=== PATIENT | female | born 1985 | race Caucasian/White ===

== ENCOUNTER 2018-10-09 22:37 | Emergency (ER) | payer MEDICAID ==
[~2018-10-09] VITALS: Ht 160 cm; Wt 69.0 kg
[2018-10-09 22:47] VITALS: BP 96/64
--- NOTE | 2018-10-09 22:50 | NUR ---
PT RETURNED TO LOBBY IN STABLE CONDITION
--- NOTE | 2018-10-09 22:55 | NUR ---
PT PRESENTS TO ED WITH N/V/D, GENERALIZED BODY ACHES, SOAR THROAT, PRODUCTIVE COUGH WITH GREEN SPUTUM, 8/10 PAIN, X2 DAYS. PT STATES FEVER AT HOME BUT TAKING MOTRIN WITH RELIEF. AFEBRILE AT THIS TIME. A&OX4. BILAT UPPER LOBES COARSE WITH PRODUCTIVE COUGH. POSITIONED IN BED FOR COMFORT WITH HOB ELEVATED. ER MD AWARE. CONTINUE TO MONITOR.
--- NOTE | 2018-10-09 22:55 | NUR ---
PT AMBULATED TO BED 6
--- NOTE | 2018-10-10 00:28 | NUR ---
PT EVAL BY RONALD RIVERA
[2018-10-10] MEDS ORDERED: KETOROLAC 30 MG/ML VIAL IVP ONE (00:40)
[2018-10-10] MEDS ORDERED: NACL 0.9% 1,000 ML IV ONE (00:40)
[2018-10-10] MEDS ORDERED: MORPHINE SULFATE 4 MG/ML SYR IVP ONE (01:10)
[2018-10-10 01:45] VITALS: BP 100/60
--- NOTE | 2018-10-10 01:45 | NUR ---
Patient discharged with v/s stable. Written and verbal after care instructions given and explained. Patient alert, oriented and verbalized understanding of instructions. Ambulatory with steady gait. All questions addressed prior to discharge. ID band removed. Patient advised to follow up with PMD. Rx of Prednisone, motrin, Tamiflu given. Patient educated on indication of medication including possible reaction and side effects. Opportunity to ask questions provided and answered.
== END 2018-10-10 01:45 | disposition home or self-care (01) ==
LOC: MED 22:37
DX: J11.1 Influenza due to unidentified influenza virus with other respiratory manifestations (principal); R07.9 Chest pain, unspecified; J45.909 Unspecified asthma, uncomplicated
CPT/HCPCS: 81002; 81025; 96374; 96375; 99283; J1885; J2270

== ENCOUNTER 2024-03-27 10:32 | Emergency (ER) | payer MEDICAID ==
[~2024-03-27] VITALS: Ht 157.5 cm; Wt 68.5 kg
[2024-03-27 10:57] VITALS: BP 137/69; PULSE 75; RESP 20; TEMP 98.3; O2SAT 98
[2024-03-27 12:06] LABS: BASOPHILS # (AUTO) 0.1 K/uL (0.00-0.22); BASOPHILS % (AUTO) 1.4 % (0.0-2.0); EOSINOPHILS # (AUTO) 0.3 K/uL (0-0.4); EOSINOPHILS % (AUTO) 3.2 % (0.0-4.0); HEMATOCRIT 36.2 % (36-48); HEMOGLOBIN 12.2 g/dL (12.0-16.0); LYMPHOCYTES # (AUTO) 2.2 K/uL (2.5-16.5); LYMPHOCYTES % (AUTO) 21.5 % (20.5-51.1); MEAN CORPUSCULAR HEMOGLOBIN 30 pg (27-31); MEAN CORPUSCULAR HGB CONC 34 g/dL (33-37); MEAN CORPUSCULAR VOLUME 89.3 fL (80-94); MONOCYTES # (AUTO) 0.7 K/uL (0.8-1.0); MONOCYTES % (AUTO) 7.1 % (1.7-9.3); NEUTROPHILS # (AUTO) 6.8 K/uL (1.8-7.7); NEUTROPHILS % (AUTO) 66.8 % (42.2-75.2); PLATELET COUNT (AUTO) 341 K/uL (140-450); RED BLOOD CELL COUNT(AUTO) 4.06 MIL/uL (4.20-5.40); RED CELL DISTRIBUTION WIDTH 15.5 % (11.6-13.7); WHITE BLOOD COUNT (AUTO) 10.2 K/uL (4.8-10.8)
[2024-03-27] MEDS: NACL 0.9% 1,500 ML IV ONE (12:11)
[2024-03-27] MEDS: ONDANSETRON 4 MG/2 ML VIAL IVP ONE (12:12)
[2024-03-27] MEDS: MORPHINE SULFATE 4 MG/ML SYR IVP ONE (12:12)
[2024-03-27 12:29] LABS: BILIRUBIN,DIRECT 0.1 mg/dL (0.0-0.3); TOTAL BILIRUBIN 0.2 mg/dL (0.0-1.0); TOTAL PROTEIN, SERUM 8.5 g/dL (6.4-8.2)
[2024-03-27 12:41] LABS: ANION GAP 14.7 (8-16); CALCIUM 9.6 mg/dL (8.5-10.1); CARBON DIOXIDE 24.3 mmol/L (21-32); CREATININE 0.7 mg/dL (0.6-1.3)
[2024-03-27] MEDS: KETOROLAC 30 MG/ML VIAL IVP ONE (13:40)
[2024-03-27 13:48] LABS: FLU A ANTIGEN negative (NEGATIVE); FLU B ANTIGEN negative (NEGATIVE)
[2024-03-27 14:16] LABS: APPEARANCE,URINE CLEAR (CLEAR); BILIRUBIN,URINE NEGATIVE (NEGATIVE); BLOOD, URINE NEGATIVE (NEGATIVE); COLOR,URINE YELLOW (YELLOW); LEUKOCYTE ESTERASE ,URINE NEGATIVE (NEGATIVE); NITRITE, URINE NEGATIVE (NEGATIVE); PH,URINE 7.5 (5.0-9.0); PROTEIN,URINE NEGATIVE (NEGATIVE); UGLUCOSE NEGATIVE (NEGATIVE); UROBILINOGEN,URINE 0.2 EU/dL (0.2 - 1)
[2024-03-27] MEDS ORDERED: ONDA-188 SL (14:25)
[2024-03-27] MEDS ORDERED: IBUP-2213 PO (14:25)
[2024-03-27] MEDS ORDERED: FAMO-90 PO (14:25)
[2024-03-27] MEDS ORDERED: ACET-8905 PO (14:25)
== END 2024-03-27 14:45 | disposition home or self-care (01) ==
LOC: MED 10:32
DX: K80.20 Calculus of gallbladder without cholecystitis without obstruction (principal); Z20.822 Contact with and (suspected) exposure to COVID-19; K80.50 Calculus of bile duct without cholangitis or cholecystitis without obstruction; R74.01 Elevation of levels of liver transaminase levels; J45.909 Unspecified asthma, uncomplicated; Z79.899 Other long term (current) drug therapy
CPT/HCPCS: 36415; 76705; 80048; 80076; 81003; 83690; 85025; 87426; 87804; 96361; 96374; 96375; 99285; J1885; J2270; J2405; J7030; Q0092